=== PATIENT | male | born 1985 | race African-American/Black ===

== ENCOUNTER 2016-06-02 21:41 | Emergency (ER) | payer OTHER ==
[~2016-06-02 21:41] MED LIST: AURODEX EAR DRO15 ML OT; AZITHROMYCIN250 MG PO; BACTRIM DS TABL1 TA1 PO; CLARITIN D PO; CLEOCIN PO; CORTISPORIN-TC10 M1 OT; DICLOFENAC PO; HYDROMET PO; KETOPROFEN PO; MOTRIN400 M1 DOB; NAPROSYN500 MG PO; NO MEDICATIONS; NORFLEX100 M1 PO; PHENERGAN12.5 MG PO; PREDNISONE PO; SEPTRA SUSPENS100 ML PO; SUDAFED PO; VOLTAREN75 MG PO; ZITHROMAX PO; ZITHROMAX1 G/PKT PO; ZYRTEC-D T1 TAB.SR1 PO
[2016-06-02 21:57] LABS: INFLUENZA A POS (NEG); INFLUENZA B NEG (NEG)
== END 2016-06-03 04:56 | disposition home or self-care (01) ==
LOC: SED 21:41
PROVIDERS: Physician Assistant Medical
DX: J09.X2 Influenza due to identified novel influenza A virus with other respiratory manifestations (principal); Z88.0 Allergy status to penicillin
CPT/HCPCS: 87804; 99282

== ENCOUNTER 2016-08-15 18:43 | Emergency (ER) | payer OTHER | END 2016-08-15 20:19 | disposition home or self-care (01) | LOC: SED 18:43 | DX: J06.9 Acute upper respiratory infection, unspecified (principal); J45.909 Unspecified asthma, uncomplicated; Z90.89 Acquired absence of other organs; Z88.0 Allergy status to penicillin | CPT/HCPCS: 87651; 99282 ==

== ENCOUNTER 2016-10-24 16:16 | Emergency (ER) | payer OTHER ==
--- NOTE | ~2016-10-24 | CT4 ---
[facility] A Service [facility] RADIOLOGY TEXT RESULTS PATIENT: DALILA WEI LOCATION: SED : 83 UNIT #: [id number] AGE: [address]: Lopez Knott MD SEX: M ORDER DR: [id number] [place] [id number] E MR#: [id number] Acc #: [id number] NAME: DALILA WEI : 1985 SEX: M STUDY DATE/TIME: 10/24/2016 17:23 UNIT: SED ROOM: STUDY DESCRIPTION: CT Abd and Pelv Wo Cont Attending Physician: Lopez Knott M.D. Ordering Physician: Lopez Knott M.D. Primary Care Physician: No Primary Care Physician MEDICAL IMAGING REPORT This report is preliminary unless electronic signature is present. EXAM CT abdomen and pelvis without contrast HISTORY Bilateral flank pain for 2 days. Nausea and diarrhea. TECHNIQUE This CT exam was performed with one or more of the following radiation dose reduction techniques: automatic control, adjustment of mA and/or kV according to patient size, and iterative reconstruction. FINDINGS CT abdomen and pelvis was performed without contrast CT ABDOMEN: The liver, gallbladder, spleen, pancreas, kidneys, and adrenal glands are unremarkable. No renal calculi. No hydronephrosis. Normal caliber abdominal aorta. No ascites. No bowel dilatation. Small umbilical hernia containing fat. CT PELVIS: Normal appendix. No free fluid. No bowel dilatation. No bowel wall thickening. Urinary bladder is normal. IMPRESSION 1. No acute findings in the abdomen or pelvis. 2. No urinary calculi or urinary obstruction. 3. Normal appendix. 4. Small umbilical hernia containing fat. Dictated by... Yang Slaughter M.D. [facility] A Service of [facility] RADIOLOGY TEXT RESULTS PATIENT: DALILA WEI LOCATION: SED : [birth year] UNIT #: [id number] AGE: [address]: Lopez Knott MD SEX: M ORDER DR: THIS IS AN ELECTRONICALLY VERIFIED REPORT Yang Nabila Slaughter M.D. at 10/25/2016 11:31 PM JOYCE/bren TD: 10/25/2016 04:50 JOB #: [id number] MEDICAL IMAGING REPORT Page 1 of 1
[2016-10-24 16:50] LABS: URINE SOURCE CLEAN CATCH
[2016-10-24 16:52] LABS: URINE APPEARANCE CLEAR; URINE BILIRUBIN NEG (NEG); URINE BLOOD NEG (NEG); URINE COLOR YELLOW; URINE GLUCOSE NEG (NORM); URINE KETONE NEG (NEG); URINE LEUKOCYTE ESTERASE NEG (NEG); URINE NITRATE NEG (NEG); URINE PH 6.5 (5-8); URINE PROTEIN NEG (NEG); URINE SPECIFIC GRAVITY <=1.005 (1.003-1.035); URINE UROBILINOGEN 0.2 MG/DL (NORM)
[2016-10-24 16:54] LABS: MICRO INDICATED? NO
[2016-10-24 17:14] LABS: BASOPHIL# 0.1 X10e3 (0-0.3); BASOPHIL% 0.6 % (0-2.5); EOSINOPHIL% 0.3 % (0.0-7.0); HEMATOCRIT 43.6 % (38.0-50.0); HEMOGLOBIN 14.6 gm/dL (13.0-16.0); LYMPHOCYTE# 0.8 X10e3 (1.0-3.5); LYMPHOCYTE% 10.2 % (17.0-45.0); MEAN CELL VOLUME 92.7 FL (83-96); MEAN CORPUSCULAR HGB CONC 33.4 g/dL (30-36); MEAN PLATELET VOLUME 9.1 FL (6.5-11.5); MONOCYTE% 12.7 % (3.0-12.0); NEUTROPHIL% 76.2 % (40-75); PLATELET COUNT 208 X10e3 (140-420); RED BLOOD COUNT 4.71 X10e (3.90-5.60); RED CELL DISTRIBUTION WIDTH 12.4 % (11.0-15.5); WHITE BLOOD COUNT 7.9 X10e3 (4.0-10.5)
[2016-10-24 17:17] LABS: DIFF IND NO
[2016-10-24 17:31] LABS: ALBUMIN SERUM 4.5 g/dL (3.5-5.0); BILIRUBIN,TOTAL 1.4 mg/dL (0.2-2.0); BUN/CREATININE RATIO 11.11; CALCIUM SERUM 8.8 mg/dL (8.4-10.2); CREATININE SERUM 0.9 mg/dL (0.6-1.4); GLOM FILT RATE Estimated 130.5 mL/min (>60); POTASSIUM 3.4 mmol/L (3.5-5.1); PROTEIN TOTAL SERUM 7.8 g/dL (6.0-8.3)
== END 2016-10-24 18:32 | disposition home or self-care (01) ==
LOC: SED 16:16
PROVIDERS: Emergency Medicine
DX: S29.012A Strain of muscle and tendon of back wall of thorax, initial encounter (principal); S39.012A Strain of muscle, fascia and tendon of lower back, initial encounter; K21.9 Gastro-esophageal reflux disease without esophagitis; J45.909 Unspecified asthma, uncomplicated; Z86.14 Personal history of Methicillin resistant Staphylococcus aureus infection; Z88.0 Allergy status to penicillin; X58.XXXA Exposure to other specified factors, initial encounter; Y92.9 Unspecified place or not applicable
CPT/HCPCS: 36415; 74176; 80053; 81003; 82150; 83690; 85025; 96361; 96374; 96375; 99284; J1885; J2405